=== PATIENT | male | born 1970 | race Caucasian/White ===

== ENCOUNTER 2025-10-09 18:16 | Emergency (ER) | payer BC, SELFPAY ==
--- OUTSIDE RECORDS SUMMARY | 2019-07-09 18:00 | XMS_ITS | Continuity of Care Document ---
Author Organization [facility] Address [address] [place] [address] Phone Care Team Providers Care Tool Tender Name Role Phone Laury Sung DO Unavailable Unavailab le Procedures Procedure Date OFFICE/OUTPATIENT VISIT, EST OBSERVATION CARE DISCHARGE Advance Directives Directive Yes / No Effective Date File Name No Information Encounters Encounter Description Practice Location Reason(s) For Visit Diagnoses Date Provider Providers Copied on Encounter OFFICE/OUTPAT IENT VISIT, EST [facility], [address] [place] [address], [id number], [place] tel:[phone] [facility], [place] - OP No Information Pineda Kaye. [address] [place] [address] Physicians Office [facility], [place], [place], [id number], [place]. tel:[phone] Family History Family Member Type Diagnosis Age At Onset No Information Payers Payer name Insurance type Covered alliance party ID Authoriza tion(s) [employer] [facility] BL [id number] Social History Type Description Quantity Date Captured Comments Sex Male Smoking Status No Information Sexual Orientation Choose not to disclose Chief Complaint And Reason For Visit No Information Reason For Referral Reason For Referral No Information History Of Present Illness Encounter Date Complaint History Of Prese nt Illness No Information Functional Status Date Functional Assessmen t No Information Instructions Date Instruction Additional Infor mation No Information Assessments Type Assessment Date No Information Patient Care Teams Name Effective Dates (start - stop) Status Members No Information
--- NOTE | ~2025-10-09 | CT_ITS ---
CT brain wo con HISTORY:dizziness COMPARISON: None. TECHNIQUE: Axial images were obtained of the head without intravenous contrast. FINDINGS: No acute intracranial hemorrhage, mass effect or midline shift. No extra-axial fluid collections. The calvarium is intact. Visualized paranasal sinuses and mastoid air cells are clear. IMPRESSION: No acute intracranial hemorrhage or extra axial fluid collections. All CT scans at this facility are performed using low dose modulation techniques as appropriate to perform exam including the following: automated exposure control; use of iterative reconstruction technique; adjustment of the mA and/or kV according to patient size (this includes techniques or standardized protocols for targeted exams where dose is matched to indication/reason for exam). Reviewed, dictated and finalized at location S. NSIC NURSE IMPRESSION: No acute intracranial hemorrhage or extra axial fluid collections. All CT scans at this facility are performed using low dose modulation techniqu es as appropriate to perform exam including the following: automated exposure c ontrol; use of iterative reconstruction technique; adjustment of the mA and/or kV according to patient size (this includes techniques or standardized protocol s for targeted exams where dose is matched to indication/reason for exam).
--- NOTE | ~2025-10-09 | XR_ITS ---
XR chest 2V 10/09/2025 19:00 Indication: Chest pain Procedure: 2 view chest Comparison: No prior studies for comparison. Findings: Heart size normal. Left lung clear. There is ar 12 mm right lower lobe nodule. Heart size normal. No focal pneumonia, pleural effusion or pneumothorax. No acute osseous abnormality. Impression: 1: Right lower lobe nodule measuring [address] chest recommended. Reviewed, dictated and finalized at location I. MER OPERATOR Impression: 1: Right lower lobe nodule measuring [address] chest recommend ed.
--- NOTE | 2025-10-09 18:19 | ECG_ITS ---
Test Date: 2025-10-09 18:40:06 Measurements Intervals [place] Rate: 98 P: 53 [place]: 125 QRS: 49 QRSD: 98 T: 47 QT: 353 QTc: 453 Interpretive Statements SINUS RHYTHM WITH FREQUENT VENTRICULAR PREMATURE COMPLEXES BORDERLINE ST-T WAVE ABNORMALITY- INF/HIGH LAT LEADS BASELINE ARTIFACT- I, II, AVR ABNORMAL ECG No previous ECG available for comparison Electronically Signed On 10-10-2025 06:09:04 DIET CLERK by Jesús Willoughby D.O.
[2025-10-09 18:28] VITALS: BP 140/97; PULSE 93; RESP 19; TEMP 36.7; O2SAT 100
--- NOTE | 2025-10-09 18:29 | ED.CHESTPAIN ---
HPI - Chest Pain General Chief Complaint: Chest Pain Stated Complaint: cp Time Seen by Provider: 10/09/25 18:21 Source: patient Mode of arrival: ambulatory Limitations: no limitations History of Present Illness HPI narrative: This is a 55 year old male that presents to the ER for dizziness. Reports he was working. He started to feel dizzy/lightheaded, like he was going to pass out. Feels like he is having a difficult time catching his breath. Denies chest pain, focal numbness, weakness. Related Data Allergies Allergy/AdvReac Type Severity Reaction Status Date / Time bupropion (From Wellbutrin) AdvReac Mild Other Verified 10/09/25 19:29 Review of Systems Review of Systems: All systems reviewed & are unremarkable except as noted in HPI and below PMFSH Past Medical History Medical History (Updated 10/09/25 @ 22:06 by Nory Magaña PA-C) Diabetes mellitus Hypertension Social History Social History (Updated 10/09/25 @ 18:30 by Nory Magaña PA-C) Smoking status: Current every day smoker Exam Narrative: GENERAL: Tearful, anxious HEAD: Normocephalic, atraumatic. EYES: PERRLA and EOMI. ENT: Nares clear, no rhinorrhea or epistaxis. Mucous membranes dry. Oropharynx without tonsillar hypertrophy exudate or other lesions. Bilateral TMs pearly trevino non-bulging NECK: Supple. No adenopathy or masses. CHEST: Clear to auscultation. No respiratory distress. No wheezes rales or rhonchi HEART: Regular rate and rhythm. No murmur heard. Normal peripheral pulses. EXTREMITIES: Normal range of motion. No edema. Strength equal in bilateral upper and lower extremities (5/5) SKIN: Warm, dry, no rash. NEURO: No focal deficits. Alert and oriented x3. Cranial nerves 2-12 grossly intact PSYCH: Normal mood and affect Course Course Emergency Course: Patient updated on his workup. Resting comfortably. No current symptoms. We talked about further inpatient evaluation versus close follow up outpatient. He would like to follow up with his PCP Vital Signs Vital signs: Vital Signs Temperature 98.0 F 10/09/25 18:28 Pulse Rate 93 10/09/25 18:28 Respiratory Rate 19 10/09/25 18:28 Blood Pressure 140/97 H 10/09/25 18:28 Pulse Oximetry 100 10/09/25 18:28 Oxygen Delivery Room Air 10/09/25 18:28 Temperature 98.0 F 10/09/25 18:28 Pulse Rate 93 10/09/25 18:28 Respiratory Rate 19 10/09/25 18:28 Blood Pressure 140/97 H 10/09/25 18:28 Pulse Oximetry 100 10/09/25 18:28 Oxygen Delivery Room Air 10/09/25 18:28 [facility] Narrative Medical decision making narrative: Patient presents to the emergency department after an episode of dizziness, shortness of breath. He is afebrile and nontoxic appearing. His vitals are stable. He is neurologically intact. CBC with mild leukocytosis 12.9. Metabolic panel without concerning findings. Urine without evidence of infection. EKG without acute ST changes, baseline and 3 hour troponin are negative. CT brain without acute findings. Chest x-ray showing a lung nodule. Patient was updated on his workup. Resting comfortable at this time. He does report he recently was started on Rexulti. Has been having some side effects from this. No current symptoms. We talked about further inpatient evaluation versus close follow up outpatient. He would like to follow up with his PCP Differential Diagnosis Differential Diagnosis: Dizziness, BPPV, lightheadedness, orthostatic hypotension, electrolyte derangement, dehydration, DKA Lab Data [facility] Lab Attestation statement: I personally reviewed the patient's lab results. 10/09/25 18:41 10/09/25 18:41 Labs: Lab Results 10/09/25 10/09/25 10/09/25 Range/Units 18:41 20:43 20:58 WBC 12.9 H (4.5-10.0) K/mm3 RBC 5.20 (4.6-6.20) M/mm3 Hgb 15.7 (14.0-18.0) g/dL Hct 45.4 (42.0-52.0) % MCV 87.3 (80-100) fl MCH 30.2 (26-34) pg MCHC 34.6 (32-36) g/dl RDW 12.5 (11.5-14.5) % Plt Count 381 H (150-375) k/mm3 MPV 10.5 H (7.4-10.4) fl Immature Gran % (Auto) 0.5 (0-0.5) % Neut % (Auto) 67.5 (45.5-73.1) % Lymph % (Auto) 25.5 (18.3-44.2) % [place] % (Auto) 5.3 (2.6-8.5) % Eos % (Auto) 0.7 (0-4.4) % Baso % (Auto) 0.5 (0.2-1.2) % Lymph # (Auto) 3.30 H (0.9-3.2) K/mm3 [place] # (Auto) 0.7 H (0.1-0.6) K/mm3 Eos # (Auto) 0.1 (0-0.3) K/mm3 Baso # (Auto) 0.1 (0.0-0.1) K/mm3 Abs Immat Gran (auto) 0.07 H (0.00-0.031) K/mm3 Absolute Neuts (auto) 8.7 H (1.3-6.7) K/mm3 Absolute Nucleated RBC 0.000 (0.0-0.012) K/mm3 Nucleated RBC % 0.0 (0.0-0.2) % PT 13.1 (11.1-14.7) Seconds INR 1.0 APTT 28.0 (22.3-36.8) Seconds Sodium 134 L (137-145) mmol/L Potassium 4.4 (3.4-5.0) mmol/L Chloride 101 (98-107) mmol/L Carbon Dioxide 23 (22-30) mmol/L Anion Gap 10 (4-12) mmol/L BUN 11 (9-20) mg/dL Creatinine 0.80 (0.7-1.3) mg/dL Estim Creat Clear Calc Not Reportable Estimated GFR > 60 (59 - ) Glucose 280 H (65-110) mg/dL Hemoglobin A1c 11.6 H (<5.7) % Calcium 9.5 (8.4-10.2) mg/dL Total Bilirubin 0.9 (0.2-1.3) mg/dL AST 23 (17-59) U/L ALT 29 (6-50) U/L Alkaline Phosphatase 244 H (38-126) U/L Troponin I < 0.012 < 0.012 (0.000-0.034) ng/mL Total Protein 7.6 (6.3-8.2) g/dL Albumin 4.6 (3.5-5.1) g/dL Lipase 162 (23-300) U/L Urine Color Yellow (Yellow) Urine Appearance Clear (Clear) Urine pH 7.0 (5.0-9.0) Ur Specific [place] 1.034 (1.001-1.035) Urine Protein Negative (Negative) mg/dL Urine Glucose (UA) 3+ H (Negative) mg/dL Urine Ketones 1+ H (Negative) mg/dL Ur Blood (Man) Negative (Negative) Urine Nitrate Negative (Negative) Urine Bilirubin Negative (Negative) Urine Urobilinogen 1.0 (<2.0) mg/dL Leukocyte Esterase Rfl Negative (Negative) PRASANTH/UL Urine Opiates Screen Negative (Negative) Urine Methadone Screen Negative (Negative) Ur Barbiturates Screen Negative (Negative) Ur Phencyclidine Scrn Negative (Negative) Ur Amphetamine Screen Negative (Negative) U Benzodiazepines Scrn Negative (Negative) Urine Cocaine Screen Negative (Negative) U Cannabinoids Screen Negative (Negative) Ethyl Alcohol < 10 (<10) mg/dL Imaging Data Radiologist's impression: ITS Impressions Chest X-Ray 10/09/25 19:01 Impression: 1: Right lower lobe nodule measuring [address] chest recommended. Head CT 10/09/25 19:26 IMPRESSION: No acute intracranial hemorrhage or extra axial fluid collections. All CT scans at this facility are performed using low dose modulation techniques as appropriate to perform exam including the following: automated exposure control; use of iterative reconstruction technique; adjustment of the mA and/or kV according to patient size (this includes techniques or standardized protocols for targeted exams where dose is matched to indication/reason for exam). ECG Data EKG #1: ECG completion date: 10/09/25 normal rate, sinus rhythm, no ST changes and normal QT Critical Care Time Critical Care Time Critical Care Time: No Discharge Plan Discharge Clinical Impression: Dizziness, Shortness of breath, Lung nodule Patient Disposition: Home Condition: Improved Instructions: Dizziness (ED), Shortness of Breath (ED) Additional Instructions: Return to the emergency department if you experience fever, chest pain, shortness of breath, abdominal pain with nausea and vomiting, weakness, numbness, or any other symptoms that are concerning to you. Your blood work is largely re-assuring today. Cardiac biomarkers are negative. It does appear you need to get better control of your diabetes. Your hemoglobin A1c is 11.6. Incidentally the radiologist saw a small lung nodule on your chest x-ray and is recommending further imaging (CT scan of your lungs). This can be done with your PCP Follow up with your primary care doctor Patient Language: Lao Follow-up/Referrals: UNKNOWN,DOCTOR [Primary Care Provider] Quality HEART score for chest pain patients History: moderately suspicious ECG: normal Age: > 45 and < 65 years Risk factors: 1 or 2 risk factors Troponin: < or = to 1x normal limit Heart score: 3
[2025-10-09 18:48] LABS: Hematocrit 45.4 % (42.0-52.0); Hemoglobin 15.7 g/dL (14.0-18.0); Immature Granulocyte Percent A 0.5 % (0-0.5); Lymphocytes Absolute Auto 3.30 K/mm3 (0.9-3.2); Mean Corpuscular HGB Conc 34.6 g/dl (32-36); Mean Corpuscular Hemoglobin 30.2 pg (26-34); Mean Corpuscular Volume 87.3 fl (80-100); Nucleated Red Blood Cells Absolute Auto 0.000 K/mm3 (0.0-0.012); Nucleated Red Blood Cells Perc 0.0 % (0.0-0.2); Platelet Count Result 381 k/mm3 (150-375); Red Blood Count 5.20 M/mm3 (4.6-6.20); White Blood Count 12.9 K/mm3 (4.5-10.0)
[2025-10-09 19:00] LABS: INR 1.0; Partial Thromboplastin Time 28.0 Seconds (22.3-36.8); Prothrombin Time 13.1 Seconds (11.1-14.7)
[2025-10-09 19:07] LABS: Alanine Aminotransferase 29 U/L (6-50); Albumin Level 4.6 g/dL (3.5-5.1); Alkaline Phosphatase 244 U/L (38-126); Anion Gap 10 mmol/L (4-12); Aspartate Amino Transferase 23 U/L (17-59); Bilirubin,Total 0.9 mg/dL (0.2-1.3); Blood Urea Nitrogen 11 mg/dL (9-20); Calcium 9.5 mg/dL (8.4-10.2); Carbon Dioxide 23 mmol/L (22-30); Chloride 101 mmol/L (98-107); Estimated Glomerular Filt Rate > 60; Glucose 280 mg/dL (65-110); Lipase 162 U/L (23-300); Potassium 4.4 mmol/L (3.4-5.0); Sodium 134 mmol/L (137-145); Total Protein 7.6 g/dL (6.3-8.2)
[2025-10-09 19:17] LABS: Troponin I < 0.012 ng/mL (0.000-0.034)
[2025-10-09] MEDS: SODIUM CHLORIDE 0.9% IV 1,000 ML 999 ML IV CONT (19:30)
[2025-10-09 19:41] LABS: Hemoglobin A1C 11.6 % (<5.7)
[2025-10-09 21:08] LABS: Add Urine Microscopic? NO; Appearance Urine Clear (Clear); Glucose Urine UA 3+ mg/dL (Negative); Leukocyte Esterase Ur Negative LEU/UL (Negative); Nitrate Urine Negative (Negative); Specific Grav Ur 1.034 (1.001-1.035)
[2025-10-09 21:27] LABS: Cannabinoid Screen Urine Negative (Negative)
[2025-10-09 21:33] LABS: Troponin I < 0.012 ng/mL (0.000-0.034)
--- NOTE | 2025-10-09 21:41 | ECG_ITS ---
Test Date: 2025-10-09 21:09:22 Measurements Intervals [place] Rate: 96 P: 53 [place]: 122 QRS: 42 QRSD: 99 T: 100 QT: 374 QTc: 475 Interpretive Statements SINUS RHYTHM WITH FREQUENT VENTRICULAR PREMATURE COMPLEXES MINIMAL Q WAVES- HIGH LATERAL LEADS BASELINE ARTIFACT- I, III, AVL ABNORMAL ECG Compared to ECG 10/09/2025 18:40:06 NO SIGNIFICANT CHANGE Electronically Signed On 10-10-2025 06:10:14 [employer] by Jesús Willoughby D.O.
== END 2025-10-09 22:45 | disposition home or self-care (01) ==
PROVIDERS: Emergency Provider Physician Assistant
DX: R42 Dizziness and giddiness (principal); R06.02 Shortness of breath; R91.1 Solitary pulmonary nodule; R94.31 Abnormal electrocardiogram [ECG] [EKG]; E11.9 Type 2 diabetes mellitus without complications; I10 Essential (primary) hypertension
CPT/HCPCS: 36415; 70450; 71046; 80053; 80307; 81003; 82077; 83036; 83690; 84484; 85025; 85610; 85730; 93005; 96360; 99284; J7030